=== PATIENT | male | born 1975 | race Caucasian/White ===

== ENCOUNTER → 2018-09-20 | Outpatient (REF) | payer MEDICARE | LOC: M LAB REF 09:52 | DX: K13.21 Leukoplakia of oral mucosa, including tongue (principal) | CPT/HCPCS: 88305 ==

== ENCOUNTER → 2019-06-30 | Outpatient (CLI) | payer MEDICARE | LOC: M SMT 14:10 | PROVIDERS: ATTEND Internal Medicine Pulmonary Disease | DX: J96.11 Chronic respiratory failure with hypoxia (principal) ==

== ENCOUNTER → 2019-10-22 | Outpatient (CLI) | payer MEDICARE ==
--- NOTE | 2019-10-25 07:52 | SLEEPCENT ---
DATE OF STUDY: 10/22/2019 ORDERED BY: Dr. Guerrero Nocturnal polysomnography was performed for the titration of pressure therapy in this patient with obstructive sleep apnea syndrome. Apnea-hypopnea index 27. For testing, the patient was fit with a Tapactive Simplus full face mask of small size, 4 cm of water pressure were applied to the circuit and the lights were extinguished. 7 hours and 36 minutes of data were reviewed. There were 317.5 minutes of sleep identified. Sleep latency was prolonged 68 minutes. Rapid eye movement (REM) latency was prolonged at 92 minutes. Sleep architecture improved on optimal pressure therapy and the overall sleep efficiency was 71.1%. The patient's electrocardiogram showed a sinus rhythm with an average heart rate of 84 beats per minute. EEG showed normal waveforms for awake and sleep stages. Persistence of respiratory events prompted an increase in CPAP pressure and obstructive events were well palliated at a CPAP pressure of +17. Hypoventilatory oxygen desaturations then prompted the addition of supplemental oxygen. Best sleep was seen on CPAP 17 cm with 2 liters of oxygen bled through the system. There was significant activity in the limb EMG leads, however limb movement arousal index was only 2.5 and snoring persisted even at high CPAP pressures to some degree. IMPRESSION: Obstructive sleep apnea syndrome (G47.33). RECOMMENDATION: Nightly use of pressure therapy 17 cm of water with 2 liters of oxygen bled through the CPAP circuit. cc: Milton Jung MD
== END ==
LOC: M SLEEP 20:00
PROVIDERS: ATTEND Internal Medicine Pulmonary Disease
DX: G47.33 Obstructive sleep apnea (adult) (pediatric) (principal)

== ENCOUNTER 2020-02-28 12:04 | Outpatient (CLI) | payer MEDICARE, BC ==
[~2020-02-28] VITALS: Ht 157.5 cm; Wt 74.5 kg
[2020-02-28 12:51] VITALS: BP 143/73
[2020-02-28] MEDS ORDERED: ALBUTEROL SULFATE 2.5 MG/0.5 ML INH NEB SOLN INH PRN (13:00)
[2020-02-28] MEDS ORDERED: EPINEPHrine INJ 1 MG/ML 1ML AMP IM PRN (13:00)
[2020-02-28] MEDS ORDERED: NS 1,000 ML IV SCH (13:00)
[2020-02-28] MEDS ORDERED: methylPREDNISolone INJ 125 MG/2 ML VIAL (J2930) IV PRN (13:00)
[2020-02-28] MEDS ORDERED: FERRIC CARBOXYMALTOSE INJ 750 MG in NS 250 ML IV ONE (13:00)
[2020-02-28] MEDS ORDERED: diphenhydrAMINE 50MG/ML VIAL (J1200) IV PRN (13:00)
[2020-02-28 13:10] VITALS: BP 135/67
[2020-02-28 13:50] VITALS: BP 138/77
== END 2020-02-28 14:05 | disposition home or self-care (01) ==
LOC: M INFU 12:04
PROVIDERS: ATTEND Internal Medicine Nephrology
DX: D50.9 Iron deficiency anemia, unspecified (principal)
CPT/HCPCS: 96365; J1439

== ENCOUNTER → 2020-04-03 | Outpatient (REF) | payer MEDICARE, BC ==
[~2020-04-03] MED LIST: AMLO1TAB24; CLON2TAB7 PO; CYCL1CAP5; ELIQ5TAB PO; FENO145T7 PO; FISH1000 PO; HUMA100I3 SC; INSUR SC; LABE200T32 PO; LOSA100T50 PO; MAGN400C PO; OMEP40CA97 PO; PRED5TA PO; ROSU20TA5 PO; ULOR80TA PO
[2020-04-03 18:09] LABS: INR 0.95; PROTHROMBIN TIME 12.4 SECONDS (11.8-14.0)
[2020-04-03 18:10] LABS: PARTIAL THROMBOPLASTIN TIME 38.3 SECONDS (25.0-38.4)
[2020-04-05 19:07] LABS: G6PD2 4.98 x10E6/uL (4.14-5.80)
== END ==
LOC: M LAB REF 16:45
PROVIDERS: ATTEND Internal Medicine Nephrology
DX: N18.3 Chronic kidney disease, stage 3 (moderate) (principal); R31.9 Hematuria, unspecified

== ENCOUNTER → 2020-06-26 | Outpatient (CLI) | payer MEDICARE, BC ==
[~2020-06-26] MED LIST changes: -AMLO1TAB24; -CYCL1CAP5; -ELIQ5TAB PO; -FISH1000 PO; -HUMA100I3 SC; +LIDOCAINE 1% MDV 20ML VIAL As Ordered ONE; -PRED5TA PO
[2020-06-26 15:46] VITALS: BP 150/80
--- NOTE | 2020-07-16 09:18 | RO ---
DATE OF OPERATION: 06/26/2020 PREPROCEDURE DIAGNOSIS: Proteinuria. POSTPROCEDURE DIAGNOSIS: Proteinuria and status post left kidney biopsy. PROCEDURE: Left kidney biopsy. INDICATION FOR PROCEDURE: Proteinuria. SURGEON: Keon Garza M.D. ANESTHESIA: 1% Lidocaine. DESCRIPTION OF PROCEDURE: Informed consent obtained from the patient. Procedure was explained to him and questions answered. After signing the consent, the patient was brought to the ultrasound room and placed in prone position on the stretcher. A pillow was placed under his abdomen and left kidney identified with ultrasound. After that, skin was cleaned and prepped in the usual sterile fashion. 1% Lidocaine used under ultrasound guidance all the way down to renal capsule. A small incision made with the knife and under direct ultrasound guidance, coaxial needle placed all the way down to renal capsule. After confirming the position, biopsy needle was advanced through the coaxial needle and kidney tissue obtained. Three specimens obtained in three different attempts, and patient tolerated the procedure very well. Post-procedure ultrasound showed only a minimal amount of perinephric hematoma. Coaxial needle was removed and digital pressure held at the site to secure hemostasis. The patient was then turned on his back and advised for bedrest for 4 hours. He was transferred to the recovery room in stable condition. There was minimal blood loss and no other complications. LISSETTE
--- NOTE | 2020-07-19 08:32 | REP ---
RENAL ULTRASOUND GUIDANCE HISTORY: Proteinuria. FINDINGS: Sonographic guidance is provided to Dr. Garza who performed an ultrasound- guided needle biopsy of the left kidney. LISSETTE
== END ==
LOC: M IRPRO 10:31
PROVIDERS: ATTEND Internal Medicine Nephrology
DX: R80.9 Proteinuria, unspecified (principal)

== ENCOUNTER → 2020-10-23 | Outpatient (CLI) | payer MEDICARE, BC ==
[~2020-10-23] MED LIST changes: +AMLO1TAB24; +CYCL1CAP5; +ELIQ5TAB PO; +FISH1000 PO; +HUMA100I3 SC; -LIDOCAINE 1% MDV 20ML VIAL As Ordered ONE; +PRED5TA PO
== END ==
LOC: M LABSMTC 10:34
PROVIDERS: ATTEND Anesthesiology
DX: Z01.812 Encounter for preprocedural laboratory examination (principal); Z20.828 Contact with and (suspected) exposure to other viral communicable diseases

== ENCOUNTER 2020-10-24 11:58 | Day surgery (SDC) | payer OTHER, BC ==
[~2020-10-24] VITALS: Ht 165.1 cm; Wt 124.3 kg
[~2020-10-24 11:58] MED LIST changes: +LIDOCAINE 1% MDV 20ML VIAL SQ PRN; +LR 1,000 ML IV ONE; +ceFAZolin SOD 2 GM in IV 1 EA IV ONE
[2020-10-24] MEDS ORDERED: LIDOCAINE 2% 100MG/5ML SDV (FOR ANES.) As Ordered ONE (12:35)
[2020-10-24] MEDS ORDERED: propofoL 200 MG/20 ML VIAL As Ordered ONE ×4 (12:35→15:48)
[2020-10-24] MEDS ORDERED: ONDANSETRON 4MG/2ML VIAL As Ordered ONE ×2 (12:35→16:25)
[2020-10-24] MEDS ORDERED: dexameTHASONE 4 MG/ML 1ML VIAL (J1100 PER 1MG) As Ordered ONE (12:35)
[2020-10-24] MEDS ORDERED: fentaNYL 100 MCG/2 ML INJECTION (J3010) As Ordered ONE ×2 (12:35→16:25)
[2020-10-24] MEDS ORDERED: MIDAZOLAM INJ 2MG/2ML VIAL (J2250 PER 1MG) As Ordered ONE ×2 (12:36→14:57)
[2020-10-24] MEDS ORDERED: ceFAZolin 1GM VIAL (J0690 PER 500MG) As Ordered ONE (13:14)
[2020-10-24] MEDS ORDERED: LIDOCAINE W/EPINEPHRINE 1% 20ML VIAL As Ordered ONE (14:09)
[2020-10-24] MEDS ORDERED: KETAMINE HCL 200 MG/20 ML VIAL As Ordered ONE (15:33)
--- NOTE | 2020-10-24 16:09 | REP ---
INDICATION: ORIF PATELLA RIGHT. COMPARISON: None. TECHNIQUE: Intraoperative fluoroscopic imaging using portable C-arm technique. FINDINGS: AP and lateral views demonstrate the patient to be status post satisfactory transverse patellar fracture fixation with 2 screws in satisfactory position. Total fluoroscopic time 193 seconds. IMPRESSION: Status post patellar fracture fixation. <Electronically signed by Hernesto Horne > 10/24/20 [id number]
[2020-10-24] MEDS ORDERED: oxyCODONE 5MG TAB As Ordered ONE (16:25)
[2020-10-24] MEDS: fentaNYL 100 MCG/2 ML INJECTION (J3010) IV PRN ×4 (16:30→16:45)
[2020-10-24] MEDS: oxyCODONE 5MG TAB PO PRN ×2 (16:30→17:00)
[2020-10-24] MEDS ORDERED: PERCOCET 5MG/325MG TAB PO PRN (16:45)
[2020-10-24] MEDS ORDERED: MORPHINE 2 MG/ML 1ML VIAL (J2270) IV PRN (16:45)
[2020-10-24] MEDS ORDERED: ACETAMINOPHEN TAB 650MG DOSE (2X325MG) PO PRN (16:45)
[2020-10-24] MEDS ORDERED: LR 1,000 ML IV SCH ×2 (16:45)
[2020-10-24] MEDS ORDERED: ONDANSETRON 4MG/2ML VIAL IV PRN ×2 (16:45)
[2020-10-24] MEDS ORDERED: HYDROMORPHONE HCL 0.5 MG/ 0.5 ML SYRINGE (J1170 PER 1) As Ordered ONE ×3 (16:56→18:21)
[2020-10-24] MEDS: HYDROMORPHONE HCL 0.5 MG/ 0.5 ML SYRINGE (J1170 PER 1) IV PRN ×6 (17:00→18:30)
[2020-10-24] MEDS ORDERED: LABETALOL 100MG/20ML VIAL As Ordered ONE (18:21)
[2020-10-24] MEDS ORDERED: hydrALAZINE 20MG/ML 1ML VIAL (J0360 PER 20MG) As Ordered ONE (18:21)
[2020-10-24] MEDS: LABETALOL 100MG/20ML VIAL IV PRN ×2 (18:25→18:30)
[2020-10-24] MEDS: hydrALAZINE 20MG/ML 1ML VIAL (J0360 PER 20MG) IV PRN ×2 (18:25→18:30)
[2020-10-24] MEDS ORDERED: fentaNYL 100 MCG/2 ML INJECTION (J3010) IV PRN (18:30)
[2020-10-24] MEDS ORDERED: LABETALOL 200 MG TAB PO ONE (18:30)
[2020-10-24 18:35] VITALS: BP 166/82
[2020-10-24 19:20] VITALS: BP 156/75
--- NOTE | 2020-10-25 00:01 | ECGEPIP ---
[facility] Test Date: 2020-10-24 Pat Name: TIERA FISH Department: Room: - Gender: Male Teaching Associate: LAYO : 1975 Requested By: Brice Chase Order Number: [id number] Reading MD: Stefano Lockhart Measurements Intervals [place] Rate: 73 P: 23 CT: 149 QRS: 46 QRSD: 98 T: 52 QT: 352 QTc: 388 Interpretive Statements SINUS RHYTHM ARTIFACT IN V1/V2 No prior tracing in the system Electronically Signed on 10-25-2020 0:00:51 EST by Stefano Lockhart
--- NOTE | 2020-10-25 10:45 | RO ---
OPERATIVE NOTE DATE OF OPERATION: 10/24/2020 PREOPERATIVE DIAGNOSIS: Right patella fracture. POSTOPERATIVE DIAGNOSIS: Right patella fracture. PLANNED PROCEDURE: Right patella ORIF. PROCEDURE PERFORMED: Right patella ORIF. SURGEON: Suleman Rick MD BRASSWIND INSTRUMENT REPAIRER: Dr. Lorenz ANESTHESIA: Spinal anesthetic. OPERATIVE PREAMBLE: This 45-year-old man fell sustaining right patella fracture. Discussed pros, cons, risks and benefits of having open reduction and internal fixation of patella. He wished to proceed. He had no further questions. I saw and assessed him in preoperative holding, normal neurovascular exam and marked the right lower extremity. OPERATIVE REPORT: The patient was brought to the operating theater. He was administered spinal anesthetic and then administered 2 gm IV Ancef. The patient was placed supine on the operating room table. All bony prominences were appropriately padded. 34 inch tourniquet was applied to the right lower extremity at the thigh and appropriately padded. Bone Foam leg positioner was used to elevate the limb as well as Bone Foam at the hip. Limb was prepped and draped in sterile fashion with Chlorhexidine-based prep solution allowing over 3 minutes prep solution drying time prior to draping. Preoperative time out was performed confirming correct patient and surgery. We began by elevating the limb and inflating the tourniquet to 250 mmHg. Tourniquet was taken down at the end of the case. Total tourniquet time 60 minutes. I began by making a standard anterior midline incision centered over the patella. I carried the dissection down through skin and subcutaneous tissue achieving meticulous hemostasis. I evacuated any fracture hematoma interposed periosteum. I achieved preliminary reduction of the leg in full extension with two large pointed reduction forceps. I took AP and lateral radiographs to confirm anatomic alignment as well as the undersurface of the articular surface of the patella with my finger as well as Herriman elevator to confirm anatomic reduction. I used Synthes cannulated screw set. I passed guidewires avoiding articular surface parallel in both AP and lateral radiographs. These measured 48 mm so took 2 off, overdrilled each wire and then passed two partially threaded cannulated screws measuring 46 mm in length over top of the guidewires. These achieved good compression of the fracture site, all threads crossed the fracture site. In standard fashion I used [id number] FiberTape through the sutures creating [id number] looped system of knot-tied suture laterally. I placed five throws, cut the sutures short using a scalpel. This achieved good compression. I tagged it in full extension. This achieved appropriate tension band technique with no gapping up to 30 degrees flexion. I then closed the retinaculum on either side with #1 Vicryl suture in [id number] fashion. I then thoroughly irrigated, tourniquet was let down. Subcutaneous tissue was irrigated with normal saline. Subcutaneous tissues closed with interrupted and running 2-0 Vicryl sutures. Skin was cleaned with wet-to-dry dressing. 12 mL of 1% Lidocaine with Epinephrine was instilled around the incision site. I took final radiographs in AP and lateral and saved them onto the system. Prineo dressing was used as both wound closure and wound application system for dressing as well as over top once the Prineo had dried, ABD dressing and gauze. The patient was placed in knee immobilizer in full extension after the drapes were removed. The patient was transferred off the operating table and taken to postanesthesia care unit in stable condition. All sponge, instrument and needle counts were correct. No complications. ESTIMATED BLOOD LOSS: 50 mL. Postoperatively the patient is to be non to partial weightbearing, in full extension for 4 weeks in the knee immobilizer, gradually more flexion, at that point a hinged knee immobilizer which we will order for him at 2 week visit param as well as physical therapy. Prescription will be sent into his pharmacy of choice electronically. He will follow up in the office 2 weeks' time. LISSETTE
== END 2020-10-24 19:25 | disposition home or self-care (01) ==
LOC: M SDC 11:58
PROVIDERS: ATTEND Orthopaedic Surgery Sports Medicine
DX: S82.001A Unspecified fracture of right patella, initial encounter for closed fracture (principal); W19.XXXA Unspecified fall, initial encounter; Y92.89 Other specified places as the place of occurrence of the external cause; Y93.9 Activity, unspecified; Y99.9 Unspecified external cause status; I10 Essential (primary) hypertension; E11.9 Type 2 diabetes mellitus without complications; M10.9 Gout, unspecified; G47.30 Sleep apnea, unspecified; F41.9 Anxiety disorder, unspecified; Z79.01 Long term (current) use of anticoagulants; Z79.4 Long term (current) use of insulin; F17.220 Nicotine dependence, chewing tobacco, uncomplicated
CPT/HCPCS: 27524; 76000; 93005; C1713; J0360; J0690; J2250; J2405; J3010

== ENCOUNTER → 2020-10-31 | Outpatient (REF) | payer OTHER, BC ==
[~2020-10-31] MED LIST changes: -LIDOCAINE 1% MDV 20ML VIAL SQ PRN; -LR 1,000 ML IV ONE; -ceFAZolin SOD 2 GM in IV 1 EA IV ONE
== END ==
LOC: M LAB REF 17:05
PROVIDERS: ATTEND Internal Medicine Nephrology
DX: N04.1 Nephrotic syndrome with focal and segmental glomerular lesions (principal); N18.30 Chronic kidney disease, stage 3 unspecified

== ENCOUNTER → 2020-12-06 | Outpatient (CLI) | payer OTHER, BC ==
--- NOTE | 2020-12-06 09:08 | REP ---
INDICATION: RIGHT KNEE PAIN. COMPARISON: None. TECHNIQUE: AP, lateral, sunrise and tunnel views of the right knee FINDINGS: Evidence for prior patellar fracture fixation with 2 screws traversing a transverse fracture. 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 IMPRESSION: Presumed posttraumatic and postsurgical changes related to patellar fracture. <Electronically signed by Hernesto Horne > 12/06/20 [id number]
== END ==
LOC: M SOG 08:36
PROVIDERS: ATTEND Orthopaedic Surgery Sports Medicine
DX: Z47.89 Encounter for other orthopedic aftercare (principal); S82.001S Unspecified fracture of right patella, sequela; Z96.7 Presence of other bone and tendon implants; X58.XXXS Exposure to other specified factors, sequela

== ENCOUNTER → 2021-01-14 | Outpatient (CLI) | payer OTHER, BC ==
--- NOTE | 2021-01-14 20:06 | REP ---
INDICATION: AFTERCARE. COMPARISON: Comparison knee radiographs December 06, 2020 and October 17, 2020.. TECHNIQUE: Four views of the right knee are provided including sunrise view. FINDINGS: Two metallic screws are seen transfixing the transversely oriented fracture of the patella in good position. There is bony hypertrophy anterior to the patella and considerable bony hypertrophy is seen superiorly and laterally adjacent to the patella. There is a soft tissue calcification along the course of the proximal fibers of the medial collateral ligament consistent with in prior injury to that structure. Tibiofemoral articulation is unremarkable. Zephyr view shows considerable soft tissue bone deposition along the medial and lateral extra patellar soft tissues. IMPRESSION: Healing patellar fracture with [address] Adjacent soft tissue ossification and calcification. Evidence of a old medial collateral ligament injury. <Electronically signed by Ran Wooten > 01/14/212001
== END ==
LOC: M SOG 14:13
PROVIDERS: ATTEND Orthopaedic Surgery Sports Medicine
DX: Z47.89 Encounter for other orthopedic aftercare (principal); S82.001D Unspecified fracture of right patella, subsequent encounter for closed fracture with routine healing; X58.XXXD Exposure to other specified factors, subsequent encounter; Z96.7 Presence of other bone and tendon implants

== ENCOUNTER → 2021-02-04 | Outpatient (REF) | payer MEDICARE | LOC: M LAB REF 17:09 | PROVIDERS: ATTEND Internal Medicine Nephrology | DX: N04.1 Nephrotic syndrome with focal and segmental glomerular lesions (principal); N18.30 Chronic kidney disease, stage 3 unspecified ==

== ENCOUNTER → 2021-04-15 | Outpatient (CLI) | payer MEDICARE ==
[~2021-04-15] MED LIST changes: +OMEP40CA4 PO; -OMEP40CA97 PO
--- NOTE | 2021-04-15 09:50 | REP ---
INDICATION: UNSP FX RIGHT PATELLA, SUBS FOR CLOS FX W ROUTN HEAL. COMPARISON: 01/14/2021 TECHNIQUE: Four views without tunnel view FINDINGS: Cancellous screws affixing previously described patellar fracture again noted status quo. Parapatellar calcifications are again noted status quo. There is no change in the compartments. Note is again made of minimal bicompartmental marginal osteophytosis. No acute abnormality has developed since last exam. IMPRESSION: No evidence of an acute abnormality. Findings as described above. <Electronically signed by Manjinder Graham > 04/15/21 [id number]
== END ==
LOC: M SOG 09:22
PROVIDERS: ATTEND Orthopaedic Surgery Sports Medicine
DX: S82.001D Unspecified fracture of right patella, subsequent encounter for closed fracture with routine healing (principal); X58.XXXD Exposure to other specified factors, subsequent encounter; Y92.9 Unspecified place or not applicable; M25.761 Osteophyte, right knee

== ENCOUNTER → 2021-05-06 | Outpatient (REF) | payer MEDICARE | LOC: M LAB REF 17:07 | PROVIDERS: ATTEND Internal Medicine Nephrology | DX: N04.1 Nephrotic syndrome with focal and segmental glomerular lesions (principal); E83.42 Hypomagnesemia ==

== ENCOUNTER → 2021-08-05 | Outpatient (REF) | payer MEDICARE | LOC: M LAB REF 16:59 | PROVIDERS: ATTEND Internal Medicine Nephrology | DX: N04.1 Nephrotic syndrome with focal and segmental glomerular lesions (principal) ==

== ENCOUNTER → 2021-11-15 | Outpatient (REF) | payer MEDICARE ==
[~2021-11-15] MED LIST changes: +LOSA100T45 PO; -LOSA100T50 PO
== END ==
LOC: M LAB REF 16:53
PROVIDERS: ATTEND Internal Medicine Nephrology
DX: N04.1 Nephrotic syndrome with focal and segmental glomerular lesions (principal)

== ENCOUNTER → 2022-04-02 | Outpatient (REF) | payer MEDICARE ==
[~2022-04-02] MED LIST changes: +LABE200T3 PO; -LABE200T32 PO
== END ==
LOC: M LAB REF 17:03
PROVIDERS: ATTEND Internal Medicine Nephrology
DX: N04.1 Nephrotic syndrome with focal and segmental glomerular lesions (principal)

== ENCOUNTER → 2022-05-13 | Outpatient (REF) | payer MEDICARE | LOC: M LAB REF 17:16 | PROVIDERS: ATTEND Internal Medicine Nephrology | DX: N04.1 Nephrotic syndrome with focal and segmental glomerular lesions (principal) ==

== ENCOUNTER → 2022-08-14 | Outpatient (REF) | payer MEDICARE ==
[~2022-08-14] MED LIST changes: -LABE200T3 PO; +LABE200T5 PO
== END ==
LOC: M LAB REF 17:01
PROVIDERS: ATTEND Internal Medicine Nephrology
DX: N04.1 Nephrotic syndrome with focal and segmental glomerular lesions (principal)

== ENCOUNTER → 2023-03-23 | Outpatient (REF) | payer MEDICARE ==
[~2023-03-23] MED LIST changes: -LOSA100T45 PO; +LOSA100T46 PO
== END ==
LOC: M LAB REF 17:42
PROVIDERS: ATTEND Internal Medicine Nephrology
DX: N40.1 Benign prostatic hyperplasia with lower urinary tract symptoms (principal)

== ENCOUNTER 2023-04-10 08:29 | Outpatient (CLI) | payer MEDICARE ==
[~2023-04-10] VITALS: Ht 165.1 cm; Wt 131.8 kg
[2023-04-10] VITALS (9 sets, daily range): BP systolic 126–171; BP diastolic 58–78; TEMP 98.3; O2SAT 96
[~2023-04-10 08:29] MED LIST changes: +ALBUTEROL SULFATE 2.5MG/0.5ML INH NEB SOLN INH PRN; +EPINEPHrine INJ 1 MG/ML 1ML AMP IM PRN; -ROSU20TA5 PO; +ROSU20TA61 PO; +diphenhydrAMINE 50MG/ML VIAL IV PRN; +methylPREDNISolone 125MG 2ML VIAL IV PRN
[2023-04-10] MEDS ORDERED: methylPREDNISolone 125MG 2ML VIAL IV ONE (08:30)
[2023-04-10] MEDS ORDERED: NS IV ONE (08:30)
[2023-04-10] MEDS ORDERED: RITUXIMAB PVVR IV ONE (08:30)
[2023-04-10] MEDS ORDERED: diphenhydrAMINE 50MG/ML VIAL IV ONE (08:30)
[2023-04-10] MEDS ORDERED: NS 1,000 ML IV SCH (08:30)
== END 2023-04-10 14:10 | disposition home or self-care (01) ==
LOC: M INFU 08:29
PROVIDERS: ATTEND Internal Medicine Nephrology
DX: N04.1 Nephrotic syndrome with focal and segmental glomerular lesions (principal)
CPT/HCPCS: 96375; 96413; 96415; J1200; J2930; Q5119

== ENCOUNTER 2023-04-17 10:00 | Outpatient (CLI) | payer MEDICARE ==
[2023-04-17 10:00] VITALS: BP 146/75; O2SAT 96
[~2023-04-17 10:00] MED LIST changes: +NS 1,000 ML IV SCH; +NS IV ONE; +RITUXIMAB PVVR IV ONE; +diphenhydrAMINE 50MG/ML VIAL IV ONE; +methylPREDNISolone 125MG 2ML VIAL IV ONE
[2023-04-17 11:30] VITALS: BP 132/82; TEMP 98; O2SAT 96
[2023-04-17 12:00] VITALS: BP 126/66; TEMP 97.9; O2SAT 95
[2023-04-17 12:31] VITALS: BP 111/61; TEMP 97.6; O2SAT 94
[2023-04-17 13:00] VITALS: BP 118/68; TEMP 97; O2SAT 96
[2023-04-17 14:00] VITALS: BP 124/70; TEMP 98; O2SAT 95
== END 2023-04-17 15:00 ==
LOC: M INFU 10:00
PROVIDERS: ATTEND Internal Medicine Nephrology
DX: N04.1 Nephrotic syndrome with focal and segmental glomerular lesions (principal)
CPT/HCPCS: 96375; 96413; 96415; J1200; J2930; Q5119

== ENCOUNTER 2023-04-24 08:47 | Outpatient (CLI) | payer MEDICARE ==
[~2023-04-24] VITALS: Ht 165.1 cm; Wt 134.7 kg
[2023-04-24 09:00] VITALS: BP 150/65; TEMP 98.8; O2SAT 92
[2023-04-24 10:15] VITALS: BP 139/69; O2SAT 91
[2023-04-24 10:45] VITALS: BP 145/69; O2SAT 93
[2023-04-24 11:15] VITALS: BP 176/83; O2SAT 99
[2023-04-24 12:54] VITALS: BP 136/65; O2SAT 96
== END 2023-04-24 12:50 ==
LOC: M INFU 08:47
PROVIDERS: ATTEND Internal Medicine Nephrology
DX: N04.1 Nephrotic syndrome with focal and segmental glomerular lesions (principal)
CPT/HCPCS: 96375; 96413; 96415; J1200; J2930; Q5119

== ENCOUNTER 2023-05-01 09:05 | Outpatient (CLI) | payer MEDICARE ==
[~2023-05-01] VITALS: Ht 165.1 cm; Wt 131.8 kg
[2023-05-01 09:05] VITALS: BP 143/78; TEMP 98; O2SAT 94
[2023-05-01 11:15] VITALS: BP 137/70; TEMP 97.2; O2SAT 92
[2023-05-01 12:52] VITALS: BP 162/74; O2SAT 95
== END 2023-05-01 12:55 ==
LOC: M INFU 09:05
PROVIDERS: ATTEND Internal Medicine Nephrology
DX: N04.1 Nephrotic syndrome with focal and segmental glomerular lesions (principal)
CPT/HCPCS: 96375; 96413; 96415; J1200; J2930; Q5119

== ENCOUNTER → 2024-05-02 | Outpatient (CLI) | payer MEDICARE ==
[~2024-05-02] MED LIST changes: -ALBUTEROL SULFATE 2.5MG/0.5ML INH NEB SOLN INH PRN; -EPINEPHrine INJ 1 MG/ML 1ML AMP IM PRN; -NS 1,000 ML IV SCH; -NS IV ONE; -RITUXIMAB PVVR IV ONE; -diphenhydrAMINE 50MG/ML VIAL IV ONE; -diphenhydrAMINE 50MG/ML VIAL IV PRN; -methylPREDNISolone 125MG 2ML VIAL IV ONE; -methylPREDNISolone 125MG 2ML VIAL IV PRN
== END ==
LOC: M SLEEP 20:00
PROVIDERS: ATTEND Internal Medicine Pulmonary Disease
DX: G47.33 Obstructive sleep apnea (adult) (pediatric) (principal)

== ENCOUNTER → 2025-05-11 | Outpatient (CLI) | payer MEDICARE ==
[~2025-05-11] MED LIST changes: -ROSU20TA61 PO; +ROSU20TA86 PO
[2025-05-11 13:06] LABS: BASO # 0.0 10^3/uL (0.0-0.2); BASO % 0.7 % (0.0-1.0); EOS # 0.3 10^3/uL (0.0-0.5); EOS % 6.0 % (0.0-3.0); LYMPH # 1.1 10^3/uL (1.5-5.0); LYMPH % 19.7 % (24.0-44.0); MONO # 0.8 10^3/uL (0.0-0.8); MONO % 14.4 % (2.0-8.0); NEUTROPHILS # 3.2 10^3/uL (1.5-8.5); NEUTROPHILS % 57.9 % (36.0-66.0); PLATELET COUNT, AUTOMATED 313 10^3/uL (150-450)
[2025-05-11 13:15] LABS: ERYTHROCYTE SEDIMENTATION RATE 55 mm/hr (0-15)
[2025-05-11 13:26] LABS: ESTIMATED AVERAGE GLUCOSE 166.0 MG/DL (60-110)
== END ==
LOC: M PLALAB 10:51
PROVIDERS: ATTEND Neuromusculoskeletal Medicine, Sports Medicine
DX: M25.561 Pain in right knee (principal); M79.89 Other specified soft tissue disorders; Z98.890 Other specified postprocedural states; Z79.899 Other long term (current) drug therapy

== ENCOUNTER → 2025-05-11 | Outpatient (CLI) | payer MEDICARE | LOC: M SOG 05-10 15:08 | PROVIDERS: ATTEND Neuromusculoskeletal Medicine, Sports Medicine | DX: M25.561 Pain in right knee (principal) ==